=== PATIENT | male | born 1995 | race Caucasian/White ===

== ENCOUNTER → 2017-12-15 | Outpatient (CLI) | payer OTHER | LOC: COL.PUL 09:57 | DX: R06.00 Dyspnea, unspecified (principal) ==

== ENCOUNTER → 2018-01-01 | Outpatient (CLI) | payer OTHER | LOC: COL.PUL 13:00 | DX: R06.00 Dyspnea, unspecified (principal); Z87.891 Personal history of nicotine dependence | CPT/HCPCS: J7674 ==

== ENCOUNTER → 2018-05-20 | Outpatient (CLI) | payer OTHER | LOC: COL.VAS 13:05 | DX: R06.02 Shortness of breath (principal) ==